=== PATIENT | female | born 1960 | race Asian ===

== ENCOUNTER 2018-07-18 18:52 | Inpatient (IN) | payer BC ==
[~2018-07-18] VITALS: Ht 157.5 cm; Wt 57.4 kg
[2018-07-18 18:55] VITALS: Ht 157.5 cm; Wt 57.4 kg
[2018-07-18 21:24] LABS: BASOPHIL % 0 % (0-2); PLATELET COUNT 193 x10^3mcL (130-400); RED CELL DISTRIBUTION WIDTH 12.8 % (11.5-14.5)
[2018-07-18 21:28] LABS: CALCIUM 8.8 mg/dL (8.5-10.1); CARBON DIOXIDE 29.1 mmol/L (21-32); CHLORIDE SERUM 101 mmol/L (98-107); CREATININE SERUM 0.8 mg/dL (0.6-1.0); GFR1 > 60 mL/min; GLUCOSE SERUM 149 mg/dL (74-106); POTASSIUM SERUM 3.2 mmol/L (3.5-5.1); SODIUM SERUM 137 mmol/L (136-145)
[2018-07-18 21:34] LABS: ALBUMIN 3.7 g/dL (3.4-5.0); ALKALINE PHOSPHATASE 109 U/L (46-116); ALT/SGPT 83 U/L (14-59); AST/SGOT 69 U/L (15-37); BILIRUBIN TOTAL 1.2 mg/dL (0.20-1.00); LIPASE 110 IU/L (73-393); TOTAL PROTEIN, SERUM 7.5 g/dL (6.4-8.2)
[2018-07-18] MEDS ORDERED: ETODOLAC400 MG (23:46)
[2018-07-18] MEDS ORDERED: GABAPENTIN TAB600 M1 (23:47)
[2018-07-18] MEDS ORDERED: ROBAXIN500 MG (23:48)
[2018-07-18] MEDS ORDERED: PROTONIX20 MG (23:49)
[2018-07-18] MEDS ORDERED: DETROL LA2 MG (23:49)
[2018-07-18 23:56] LABS: MAGNESIUM 2.3 mg/dL (1.8-2.4); PHOSPHOROUS 2.2 mg/dL (2.5-4.9)
[2018-07-18 23:58] LABS: CHOLESTEROL/HDL RATIO 2.2
[2018-07-19 00:03] LABS: T3 TOTAL 1.03 ng/mL
[2018-07-19 00:06] LABS: FREE T4 1.1 ng/dL (0.76-1.46); FREE THYROXINE INDEX 3.4 ug/dL (1.4-4.5); T4(THYROXINE) 11.2 ug/dL (4.7-13.3)
[2018-07-19 01:01] VITALS: BP 109/66
[2018-07-19] MEDS ORDERED: SYN15 (05:03)
[2018-07-19 05:30] VITALS: BP 118/62
[2018-07-19 06:23] LABS: UA SPECIFIC GRAVITY >=1.030 (1.005-1.035); microscopic required? YES; urine erythrocyte NEGATIVE (NEGATIVE)
[2018-07-19 06:45] LABS: BASOPHIL % 0.3 % (0-2); PLATELET COUNT 181 x10^3mcL (130-400); RED CELL DISTRIBUTION WIDTH 13.1 % (11.5-14.5)
[2018-07-19 06:55] LABS: CALCIUM 8.6 mg/dL (8.5-10.1); CARBON DIOXIDE 29.4 mmol/L (21-32); CHLORIDE SERUM 104 mmol/L (98-107); CREATININE SERUM 0.7 mg/dL (0.6-1.0); GFR1 > 60 mL/min; GLUCOSE SERUM 98 mg/dL (74-106); MAGNESIUM 2.4 mg/dL (1.8-2.4); PHOSPHOROUS 2.9 mg/dL (2.5-4.9); POTASSIUM SERUM 3.2 mmol/L (3.5-5.1); SODIUM SERUM 139 mmol/L (136-145)
[2018-07-19 07:40] VITALS: BP 108/63
[2018-07-19 17:36] VITALS: BP 134/65
[2018-07-19 19:15] VITALS: BP 128/63
[2018-07-19 22:34] VITALS: BP 131/64
[2018-07-20 05:54] VITALS: BP 134/69
[2018-07-20 06:54] LABS: BASOPHIL % 0.1 % (0-2); PLATELET COUNT 233 x10^3mcL (130-400); RED CELL DISTRIBUTION WIDTH 12.7 % (11.5-14.5)
[2018-07-20 07:18] LABS: CALCIUM 8.9 mg/dL (8.5-10.1); CARBON DIOXIDE 29.3 mmol/L (21-32); CHLORIDE SERUM 102 mmol/L (98-107); CREATININE SERUM 0.8 mg/dL (0.6-1.0); GFR1 > 60 mL/min; GLUCOSE SERUM 132 mg/dL (74-106); MAGNESIUM 2.1 mg/dL (1.8-2.4); PHOSPHOROUS 2.3 mg/dL (2.5-4.9); POTASSIUM SERUM 3.8 mmol/L (3.5-5.1); SODIUM SERUM 140 mmol/L (136-145)
[2018-07-20 08:31] VITALS: BP 140/83
[2018-07-20] MEDS ORDERED: LEVOFLOXACIN500 M1 PO (08:37)
[2018-07-20] MEDS ORDERED: AUGMENTIN 875-1 EACH PO (09:03)
[2018-07-20 09:30] VITALS: BP 140/83
== END 2018-07-20 10:01 | disposition home or self-care (01) | DRG 853 ==
LOC: ED 18:52 → MU 23:27
PROVIDERS: Emergency Medicine; Surgery; ADMIT Family Medicine
PROC: 0FT44ZZ Resection of Gallbladder, Percutaneous Endoscopic Approach (ICD-10-PCS; principal; 2018-07-19 10:00)
DX: A41.9 Sepsis, unspecified organism (principal); N17.0 Acute kidney failure with tubular necrosis; K65.9 Peritonitis, unspecified; K80.62 Calculus of gallbladder and bile duct with acute cholecystitis without obstruction; K82.1 Hydrops of gallbladder; N39.0 Urinary tract infection, site not specified; J98.11 Atelectasis; G89.29 Other chronic pain; M54.9 Dorsalgia, unspecified; E03.9 Hypothyroidism, unspecified; E83.39 Other disorders of phosphorus metabolism; E87.6 Hypokalemia; E86.0 Dehydration; E78.00 Pure hypercholesterolemia, unspecified; Z98.1 Arthrodesis status
CPT/HCPCS: 83880; 84439; J1170; J1885; J2270; J2405; J2543; J2704; J2710; J3010; J3490; J7030; J7120; Q0092